=== PATIENT | female | born 1960 | race African-American/Black ===

== ENCOUNTER 2019-11-19 16:15 | Emergency (ER) | payer MEDICAID ==
[~2019-11-19] VITALS: Ht 160 cm; Wt 122.5 kg
[2019-11-19 16:19] VITALS: BP 130/90
--- NOTE | 2019-11-19 16:41 | NUR ---
59 Y/O FEMALE BIB [facility], PT WAS AT [employer]CTORS OFFICE AND BEGAN HAVING SOB/CHEST. PT STATES "I FELT LIKE I COULDNT BREATHE". AUDIBLE WHEEZING HEARD UPON ARRIVING TO HOSPITAL. NC 2 L PLACED ON PATIENT. SPO2: 98%. RESP EVEN AND TACHY. WHEEZES HEARD IN BILAT LOBES. AAOX4. SKIN DRY/WARM. CHEST PAIN IS ASSOCIATED WITH BREATHING, DURING DEEP BREATHS 8/10 SHARP PAIN. NON RADIATING. VSS. PMH: COPD, DM, HTN ALLERGIES:COMPAZINE
--- NOTE | 2019-11-19 16:50 | NUR ---
RESP EVEN AND UNLABORED.VSS. AAOX4. PATIENT STATES RESP EFFORT HAS DECREASED, NO AUDIBLE WHEEZES HEARD
[2019-11-19] MEDS ORDERED: ASPIRIN 81 MG TAB.CHEW PO ONE (17:10)
[2019-11-19] MEDS ORDERED: ACETAMINOPHEN 325 MG TAB PO ONE (17:10)
[2019-11-19] MEDS ORDERED: methylPREDNISolone SS 125 MG in WATER STERILE 2 ML IV ONE (17:10)
[2019-11-19] MEDS ORDERED: WATER STERILE 10 ML MC ONE (17:13)
[2019-11-19] MEDS ORDERED: methylPREDNISolone SS 125 MG/2 ML VIAL ONE (17:13)
[2019-11-19 17:22] LABS: BASOPHILS # (AUTO) 0.1 K/uL (0.00-0.22); EOSINOPHILS # (AUTO) 0.3 K/uL (0-0.4); EOSINOPHILS % (AUTO) 2.3 % (0.0-4.0); HEMATOCRIT 42.2 % (36-48); HEMOGLOBIN 13.2 g/dL (12.0-16.0); LYMPHOCYTES # (AUTO) 5.9 K/uL (2.5-16.5); LYMPHOCYTES % (AUTO) 48.4 % (20.5-51.1); MEAN CORPUSCULAR HEMOGLOBIN 28 pg (27-31); MEAN CORPUSCULAR HGB CONC 31 g/dL (33-37); MEAN CORPUSCULAR VOLUME 88.1 fL (80-94); MONOCYTES # (AUTO) 0.6 K/uL (0.8-1.0); NEUTROPHILS # (AUTO) 5.3 K/uL (1.8-7.7); NEUTROPHILS % (AUTO) 43.3 % (42.2-75.2); PLATELET COUNT (AUTO) 318 K/uL (140-450); RED BLOOD CELL COUNT(AUTO) 4.79 MIL/uL (4.20-5.40); RED CELL DISTRIBUTION WIDTH 14.7 % (11.6-13.7); WHITE BLOOD COUNT (AUTO) 12.2 K/uL (4.8-10.8)
--- NOTE | 2019-11-19 17:33 | NUR ---
PT STATES SHE DOES NOT WANT TO TAKE MEDICATIONS BECAUSE " THEY WILL NOT HELP". EXPLAINED PURPOSE AND BENEFITS OF MEDICATIONS AND CONSEQUENCES OF NOT TAKING PRESCRIBED MEDICATION. ERMD NOTIFIED.
[2019-11-19 17:38] LABS: ALBUMIN 3.7 g/dL (3.4-5.0); ANION GAP 11.5 (8-16); CARBON DIOXIDE 33.2 mmol/L (21-32); CREATININE 1.2 mg/dL (0.6-1.3); POTASSIUM 3.7 mmol/L (3.5-5.1); TOTAL BILIRUBIN 0.2 mg/dL (0.0-1.0)
[2019-11-19] MEDS ORDERED: KETOROLAC 30 MG/ML VIAL IVP ONE (18:20)
[2019-11-19] MEDS ORDERED: ALBUTEROL 0.083% 2.5 MG/3 ML NEBU INH ONE (18:50)
[2019-11-19] MEDS ORDERED: IPRATROPIUM 0.02% 0.5 MG/2.5 ML NEBU INH ONE (18:50)
--- NOTE | 2019-11-19 18:50 | NUR ---
PT O2 SATURATION DECREASED TO 89-90% WHILE ON RA, DR JIMENEZ NOTIFIED, BREATHING TX ORDERED, RT NOTIFIED.
--- NOTE | 2019-11-19 19:02 | NUR ---
RT AT BEDSIDE, PT REPORTS RELIEF FROM PAIN AFTER TORADOL
--- NOTE | 2019-11-19 19:11 | NUR ---
PT REPORTS SHE IS NOT ABLE TO GET A RIDE HOME, UNFAMILIAR WITH AND UNWILLING TO TAKE BUS.
[2019-11-19 19:39] VITALS: BP 106/64
--- NOTE | 2019-11-19 19:39 | NUR ---
Patient discharged with v/s stable. Written and verbal after care instructions given and explained. Patient alert, oriented and verbalized understanding of instructions. Ambulatory with steady gait. All questions addressed prior to discharge. ID band removed. Patient advised to follow up with PMD. Rx of prednisone given. Patient educated on indication of medication including possible reaction and side effects. Opportunity to ask questions provided and answered. PT waiting in lobby for dashawn
== END 2019-11-19 19:39 | disposition home or self-care (01) ==
LOC: MED 16:15
DX: J44.1 Chronic obstructive pulmonary disease with (acute) exacerbation (principal); E11.9 Type 2 diabetes mellitus without complications; I10 Essential (primary) hypertension; Z98.890 Other specified postprocedural states; Z88.8 Allergy status to other drugs, medicaments and biological substances
CPT/HCPCS: 36415; 71045; 80053; 83880; 84484; 85025; 93005; 94640; 96374; 96375; 99285; J1885; J2930; J7613; J7644; Q0092; 96365